=== PATIENT | female | born 1925 | race Caucasian/White ===

== ENCOUNTER 2016-06-27 13:22 | Inpatient (IN) | payer MEDICARE, BC ==
--- NOTE | 2016-06-27 14:03 | EDM.PDOC ---
{null, ED HPI GENERAL MEDICAL PROBLEM - General Chief Complaint: Gastrointestinal Problem Stated Complaint: [id number] ON LIQUID DIET LOOSE STOOL NOT FEELING Time Seen by Provider: 06/27/16 14:00 Source of Information: Reports: Patient History Limitations: Reports: No Limitations - History of Present Illness INITIAL COMMENTS - FREE TEXT/NARRATIVE: This 89 yo female patient reports to the ED with diarrhea. The patient was seen in the [facility] by Dr. Baires on 06/21/16 due to diarrhea and was started on Flagyl. The patient was advised to return to the clinic in 4-5 days if no changes in symptoms. Since Dr. Baires is not in the clinic today, the patient was brought to the ED. The patient reports no labs were done during the visit with Dr. Baires. The patient was on antibiotics prior to this episode of diarrhea. 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: Other Medication(s) (Flagyl) - Related Data Allergies Allergy/AdvReac Type Severity Reaction Status Date / Time amlodipine Allergy Cannot Verified 06/27/16 14:43 Remember ampicillin Allergy Rash Verified 06/27/16 14:43 hydralazine Allergy Other Verified 06/27/16 14:43 nisoldipine [From Sular] Allergy Cannot Verified 06/27/16 14:43 Remember Penicillins Allergy Cannot Verified 06/27/16 14:43 Remember sulfamethoxazole Allergy Cannot Verified 06/27/16 14:43 [From Bactrim] Remember trimethoprim [From Bactrim] Allergy Cannot Verified 06/27/16 14:43 Remember Home Meds: Home Meds Ascorbic Acid [Vitamin C] 500 mg PO BID 10/08/13 [History] Aspirin [Ecotrin] 81 mg PO DAILY 10/08/13 [History] Betamethasone/Propylene Glyc [Diprolene AF 0.05%] 1 applic TOP BID 10/08/13 [ History] Ca Cmb No.1/Vit D3/B-6/FA/B12 [Vitamin D3 1,000 Unit] 1 tab PO DAILY 10/08/13 [ History] Cranberry 1,000 mg PO BID 10/08/13 [History] Garlic 2 cap PO DAILY 10/08/13 [History] Labetalol [Normodyne] 200 mg PO BID 10/08/13 [History] Lisinopril 40 mg PO DAILY 10/08/13 [History] Magnesium Oxide 400 mg PO DAILY 10/08/13 [History] cloNIDine HCl [Catapres] 0.1 mg PO .DAILY SBP>185 PRN 10/08/13 [History] Vitamin E 400 units PO DAILY 12/06/13 [History] Spironolactone [Aldactone] 25 mg PO DAILY 12/08/13 [History] Bismuth Subsalicylate [Pepto Bismol] 262 mg PO QID PRN 12/16/13 [History] Spironolactone [Aldactone] 25 mg PO BID #60 tablet 12/16/13 [Rx] hydrALAZINE [Apresoline] 50 mg PO Q8HR #90 tablet 12/16/13 [Rx] Past Medical History Cardiovascular History: Reports: Hypertension Respiratory History: Reports: Pneumonia, Recurrent Hematologic History: Reports: Anemia Oncologic (Cancer) History: Reports: Breast - Past Surgical History Oncologic Surgical History: Reports: Mastectomy Social & Family History - Family History Family Medical History: Noncontributory - Tobacco Use Smoking Status *Q: Never Smoker Years of Tobacco use: 30 Used Tobacco, but Quit: Yes Month Tobacco Last Used: July Second Hand Smoke Exposure: No - Alcohol Use Days Per Week of Alcohol Use: 0 - Recreational Drug Use Recreational Drug Use: No - Living Situation & Occupation Living situation: Reports: , Alone Occupation: Retired ED ROS GENERAL - Review of Systems Review Of Systems: ROS reveals no pertinent complaints other than HPI. ED EXAM, GI/ABD - Physical Exam Exam: See Below Exam Limited By: No Limitations General Appearance: Alert, WD/WN, Moderate Distress Eyes: Bilateral: Normal Appearance, EOMI Ears: Normal External Exam, Normal Canal, Hearing Grossly Normal, Normal TMs Nose: Normal Inspection, Normal Mucosa, No Blood Throat/Mouth: Normal Inspection, Normal Lips, Normal Teeth, Normal Gums, Normal Oropharynx, Normal Voice, No Airway Compromise Head: Atraumatic, Normocephalic Neck: Normal Inspection, Supple, Non-Tender, Full Range of Motion Respiratory/Chest: No Respiratory Distress, Lungs Clear, Normal Breath Sounds, No Accessory Muscle Use, Chest Non-Tender Cardiovascular: Normal Peripheral Pulses, Regular Rate, Rhythm, No Edema, No Gallop, No JVD, No Murmur, No Rub GI/Abdominal: Normal Bowel Sounds, Soft, No Organomegaly, No Distention, No Abnormal Bruit, No Mass, Pelvis Stable, Tenderness (diffuse) (Female) Exam: Deferred Rectal (Female) Exam: Deferred Back Exam: Normal Inspection, Full Range of Motion, NT Extremities: Normal Inspection, Normal Range of Motion, Non-Tender, Normal Capillary Refill, No Pedal Edema Neurological: Alert, Oriented, CN II-XII Intact, Normal Cognition, Normal Gait, Normal Reflexes, No Motor/Sensory Deficits Psychiatric: Depressed Mood, Flat Affect Skin Exam: Warm, Dry, Intact, Normal Color, No Rash Lymphatic: No Adenopathy Course - Vital Signs Last Recorded V/S: Last Vital Signs Temp 36.2 C 06/27/16 14:13 Pulse 66 06/27/16 14:13 Resp 16 06/27/16 14:13 BP 184/67 H 06/27/16 14:13 Pulse Ox 100 06/27/16 14:13 - Orders/Labs/Meds Orders: Active Orders 24 hr Category Date Time Status C DIFFICILE TOXIN BY PCR [MREF] Stat Lab 06/27/16 13:48 Uncollected CULTURE STOOL [RM] Stat Lab 06/27/16 13:47 Uncollected UA W/MICROSCOPIC [URIN] Stat Lab 06/27/16 13:47 Uncollected Sodium Chloride 0.9% [Normal Saline] 1,000 ml Med 06/27/16 14:27 Ordered IV .BOLUS Medication Orders Sodium Chloride (Normal Saline) 1,000 mls @ 500 mls/hr IV .BOLUS ONE Stop: 06/27/16 16:26 Labs: Laboratory Tests 06/27/16 06/27/16 Range/Units 13:55 13:55 WBC 5.8 (5.0-10.0) 10^3/uL RBC 3.65 L (4.2-5.4) 10^6/uL Hgb 11.4 L (12.0-16.0) g/dL Hct 32.0 L (37.0-47.0) % MCV 87.7 (80-100) fL MCH 31.2 (27.0-34.0) pg MCHC 35.6 H (33.0-35.0) g/dL Plt Count 307 (150-450) 10^3/uL Neut % (Auto) 75.5 H (42.2-75.2) % Lymph % (Auto) 11.2 L (20.5-50.1) % [place] % (Auto) 10.9 H (2-8) % Eos % (Auto) 2.4 (1.0-3.0) % Baso % (Auto) 0.0 (0.0-1.0) % Add Manual Diff Yes Neutrophils % (Manual) 80 % Lymphocytes % (Manual) 13 % Monocytes % (Manual) 6 % Eosinophils % (Manual) 1 % Sodium 119 L (135-145) mmol/L Potassium 4.5 (3.6-5.0) mmol/L Chloride 96 L (101-111) mmol/L Carbon Dioxide 15.0 L (21.0-31.0) mmol/L Anion Gap 12.5 BUN 24 H (7-18) mg/dL Creatinine 1.1 (0.6-1.3) mg/dL Est Cr Clr Drug Dosing TNP Estimated GFR (MDRD) 47 BUN/Creatinine Ratio 21.81 Glucose 104 (74-105) mg/dL Calcium 8.6 (8.4-10.2) mg/dl Total Bilirubin 0.5 (0.2-1.0) mg/dL AST 30 (10-42) IU/L ALT 26 (10-60) IU/L Alkaline Phosphatase 25 L (42-121) IU/L Total Protein 5.7 L (6.7-8.2) g/dl Albumin 4.0 (3.2-5.5) g/dl Globulin 1.7 Albumin/Globulin Ratio 2.35 Meds: Medications Generic Name Dose Route Start Last Admin Trade Name Freq PRN Reason Stop Dose Admin Sodium Chloride 1,000 mls @ 500 mls/hr 06/27/16 14:27 Normal Saline IV 06/27/16 16:26 .BOLUS ONE Discontinued Medications Generic Name Dose Route Start Last Admin Trade Name Freq PRN Reason Stop Dose Admin Ondansetron HCl 4 mg 06/27/16 14:27 Zofran IV 06/27/16 14:28 ONETIME ONE Departure - Departure Time of Disposition: 14:44 Disposition: Admitted As Inpatient 68 Condition: fair Clinical Impression: Hyponatremia, Weakness Diarrhea Qualifiers: Diarrhea type: unspecified type Qualified Code(s): R19.7 - Diarrhea, unspecified - Discharge Information Forms: ED Department Discharge Care Plan Goals: Discussed the examination, history and lab results with Dr. Raza. Dr. Raza accepted the patient for continued evaluation and management as an inpatient at [facility]. - My Orders Last 24 Hours: My Active Orders 06/27/16 13:47 CULTURE STOOL [RM] Stat UA W/MICROSCOPIC [URIN] Stat 06/27/16 13:48 C DIFFICILE TOXIN BY PCR [MREF] Stat 06/27/16 14:27 Sodium Chloride 0.9% [Normal Saline] 1,000 ml IV .BOLUS - Assessment/Plan Last 24 Hours: My Active Orders 06/27/16 13:47 CULTURE STOOL [RM] Stat UA W/MICROSCOPIC [URIN] Stat 06/27/16 13:48 C DIFFICILE TOXIN BY PCR [MREF] Stat 06/27/16 14:27 Sodium Chloride 0.9% [Normal Saline] 1,000 ml IV .BOLUS }
[2016-06-27 14:17] LABS: CHLORIDE,CL 96 mmol/L (101-111)
[2016-06-27 14:19] LABS: SODIUM,NA 119 mmol/L (135-145)
[2016-06-27] MEDS ORDERED: Sodium Chloride 0.9% 1,000 ML IV ONE (14:27)
[2016-06-27] MEDS ORDERED: Ondansetron 4 MG/2 ML SDV IV ONE (14:27)
[2016-06-27] MEDS ORDERED: cloNIDine 0.1 MG Tab PO PRN ×2 (15:47→16:27)
[2016-06-27] MEDS ORDERED: Promethazine 25 MG/ML SDV IM PRN (15:53)
[2016-06-27] MEDS ORDERED: Acetaminophen 325 MG Tab PO PRN (15:53)
--- NOTE | 2016-06-27 16:21 | PCM.HP ---
{null, H&P History of Present Illness - General Date of Service: 06/27/16 Admit Problem/Dx: Admission Diagnosis/Problem Admission Diagnosis/Problem Diarrhea Source of Information: Patient, Family History Limitations: Reports: No Limitations - History of Present Illness Initial Comments - Free Text/Narative: 89 y/o old female with past medical history of anemia, hypertension, C. difficile, infiltrating ductal carcinoma of breast, status post right breast mastectomy, ureterovaginal prolapse presented to the emergency room with nausea , diarrhea, weakness for the last 10 days. 1 week ago, she went and saw her primary care provider who empirically treated her for C. difficile with Flagyl. She was told to be on clear liquid diet and she has been on it since. She continues to have intermittent nausea but frequent diarrhea alternating with soft stool. The amount of stool has been small. She denies blood in the stool, black stool, or mucus in the stool. She denies vomiting but today she was having dry heaves. since yesterday she has been extremely weak. she denies abdominal pain but she admits in being tender when she pushed on her stomach. She admits having asked acid reflux for over one year. she takes probiotics. she denies fever, chills, shortness breath, chest pain, dysuria, lower extremities edema, or any of the symptoms. On admission her WAC 5.8. Hemoglobin 11.4. Sodium 119. Carbon dioxide 15.0. BUN 24. Creatinine 1.1. blood pressure 196/75 - Related Data Allergies/Adverse Reactions: Allergies Allergy/AdvReac Type Severity Reaction Status Date / Time amlodipine Allergy Cannot Verified 06/27/16 14:43 Remember ampicillin Allergy Rash Verified 06/27/16 14:43 hydralazine Allergy Other Verified 06/27/16 14:43 nisoldipine [From Sular] Allergy Cannot Verified 06/27/16 14:43 Remember Penicillins Allergy Cannot Verified 06/27/16 14:43 Remember sulfamethoxazole Allergy Cannot Verified 06/27/16 14:43 [From Bactrim] Remember trimethoprim [From Bactrim] Allergy Cannot Verified 06/27/16 14:43 Remember Home Medications: Home Meds Ascorbic Acid [Vitamin C] 500 mg PO BID 10/08/13 [History] Aspirin [Ecotrin] 81 mg PO DAILY 10/08/13 [History] Ca Cmb No.1/Vit D3/B-6/FA/B12 [Vitamin D3 1,000 Unit] 1 tab PO DAILY 10/08/13 [ History] Cranberry 1,000 mg PO DAILY 10/08/13 [History] Garlic 2 cap PO DAILY 10/08/13 [History] Labetalol [Normodyne] 200 mg PO BID 10/08/13 [History] Lisinopril 20 mg PO DAILY 10/08/13 [History] Magnesium Oxide 400 mg PO DAILY 10/08/13 [History] cloNIDine HCl [Catapres] 0.1 mg PO .DAILY SBP>185 PRN 10/08/13 [History] Vitamin E 400 units PO DAILY 12/06/13 [History] Spironolactone [Aldactone] 25 mg PO DAILY 12/08/13 [History] B&C/FA/Zinc/Copper Oxide/Vit E [Stress B-Complex Tablet] 1 each PO DAILY [History] Cholecalciferol (Vitamin D3) [Vitamin D3] 1,000 units PO DAILY 06/27/16 [History ] Metronidazole [IJP: metroNIDAZOLE] 500 mg PO .EVERY 8 HOURS 06/27/16 [History] Ubidecarenone [Coenzyme Q10] 100 mg PO DAILY 06/27/16 [History] Past Medical History HEENT History: Reports: Macular Degeneration, Other (See Below) Other HEENT History: bilateral eyes Cardiovascular History: Reports: Hypertension Respiratory History: Reports: Bronchitis, Recurrent, Pneumonia, Recurrent Gastrointestinal History: Reports: GERD Genitourinary History: Reports: UTI, Recurrent, Other (See Below) Other Genitourinary History: bladder prolapse [employer] History: Reports: Musculoskeletal History: Reports: Back Pain, Chronic, Osteoarthritis Hematologic History: Reports: Anemia Oncologic (Cancer) History: Reports: Breast - Infectious Disease History Infectious Disease History: Reports: C-Difficile, Helicobacter Pylori - Past Surgical History HEENT Surgical History: Reports: Cataract Surgery, Other (See Below) Other HEENT Surgeries/Procedures: both eyes Cardiovascular Surgical History: Reports: None Respiratory Surgical History: Reports: None GI Surgical History: Reports: Cholecystectomy, Other (See Below) Other GI Surgeries/Procedures: multiple colon surgeries Female Surgical History: Reports: None Musculoskeletal Surgical History: Reports: None Oncologic Surgical History: Reports: Mastectomy, Other (See Below) Other Oncologic Surgeries/Procedures: right side Social & Family History - Family History Family Medical History: Noncontributory - Tobacco Use Smoking Status *Q: Former Smoker Years of Tobacco use: 25 Packs/Tins Daily: 0.5 Used Tobacco, but Quit: Yes Month Tobacco Last Used: April Second Hand Smoke Exposure: No - Caffeine Use Caffeine Use: Reports: Coffee - Alcohol Use Days Per Week of Alcohol Use: 0 - Recreational Drug Use Recreational Drug Use: No - Living Situation & Occupation Living situation: Reports: , Alone Occupation: Retired H&P Review of Systems - Review of Systems: Review Of Systems: See Below General: Denies: Fever, Chills, Weight Gain HEENT: Reports: No Symptoms Pulmonary: Reports: No Symptoms Cardiovascular: Reports: No Symptoms Genitourinary: Reports: Frequency (chronic). Denies: Dysuria, Burning, Pain, Hematuria Musculoskeletal: Reports: No Symptoms Skin: Reports: No Symptoms Psychiatric: Reports: No Symptoms Neurological: Reports: No Symptoms Hematologic/Lymphatic: Reports: No Symptoms Immunologic: Reports: No Symptoms Exam - Exam Exam: See Below - Vital Signs Vital Signs: Last Vital Signs Temp 36.2 C 06/27/16 15:21 Pulse 75 06/27/16 15:21 Resp 20 06/27/16 15:21 BP 196/75 H 06/27/16 15:21 Pulse Ox 98 06/27/16 15:21 Weight: 65.589 kg - Exam General: Alert, Oriented, Cooperative, Moderate Distress (due to fatigue and nausea). No: Severe Distress, Sedated, Lethargic, Obtunded HEENT: Conjunctiva Clear, EACs Clear, EOMI, Hearing Intact, Mucosa Moist & [place] , Nares Patent, Normal Nasal Septum, Posterior Pharynx Clear, Pupils Equal, Pupils Reactive, TMs Clear Neck: Supple, Trachea Midline Lungs: Clear to Auscultation, Normal Respiratory Effort Cardiovascular: Regular Rate, Regular Rhythm Abdomen: Soft, Tenderness (mild and generalized), Hyperactive Bowel Sounds. No : Organomegaly, Peritoneal Signs, Distention, Guarding, Rigidity, Rebound (Female) Exam: Deferred Rectal (Female) Exam: Deferred Back Exam: Normal Inspection, Full Range of Motion Extremities: Normal Inspection, Normal Pulses. No: Clubbing, Cyanosis, Calf Tenderness, Cool, Edema, Increased Warmth Skin: Warm, Dry, Intact Neurological: Cranial Nerves Intact, Reflexes Equal Bilateral Neuro Extensive - Mental Status: Alert, Oriented x3, Normal Mood/Affect, Normal Cognition, Memory Intact Neuro Extensive - Motor, Sensory, Reflexes: CN II-XII Intact, Normal Gait, Normal Reflexes Psychiatric: Alert, Normal Affect, Normal Mood - Patient Data Result Diagrams: 06/27/16 13:55 06/27/16 13:55 *Q Meaningful Use (ADM) - VTE *Q VTE Criteria *Q: - Stroke *Q Stroke Criteria *Q: - AMI *Q AMI Criteria *Q: - Problem List (1) Hypertensive urgency SNOMED Code(s): 606922911 ICD Code: I16.0 - HYPERTENSIVE URGENCY Status: Acute Current Visit: Yes (2) Dehydration SNOMED Code(s): 33480305 ICD Code: E86.0 - DEHYDRATION Status: Acute Current Visit: Yes (3) Diarrhea SNOMED Code(s): 48610126 ICD Code: R19.7 - DIARRHEA, UNSPECIFIED Status: Acute Current Visit: Yes Qualifiers: Diarrhea type: unspecified type Qualified Code(s): R19.7 - Diarrhea, unspecified (4) Hyponatremia SNOMED Code(s): 70738054 ICD Code: E87.1 - HYPO-OSMOLALITY AND HYPONATREMIA Status: Acute Current Visit: Yes (5) Anemia SNOMED Code(s): 445826355 ICD Code: D64.9 - ANEMIA, UNSPECIFIED Status: Chronic Current Visit: No Onset Date: 12/05/13 Problem List Initiated/Reviewed/Updated: Yes Orders Last 24hrs: Active Orders 24 hr Category Date Time Status Patient Status [ADT] Routine ADT 06/27/16 16:10 Active Antiembolic Devices [RC] PER UNIT ROUTINE Care 06/27/16 15:53 Active PT Evaluation and Treatment [CONS] Routine Cons 06/27/16 15:53 Active BASIC METABOLIC PANEL,BMP [CHEM] AM Lab 06/28/16 05:11 Ordered CBC WITH AUTO DIFF [HEME] AM Lab 06/28/16 05:11 Ordered MAGNESIUM [CHEM] AM Lab 06/28/16 05:11 Ordered PHOSPHORUS [CHEM] AM Lab 06/28/16 05:11 Ordered Acetaminophen [Tylenol] Med 06/27/16 15:53 Active 650 mg PO Q4H PRN Ondansetron [Zofran ODT] Med 06/27/16 15:53 Active 4 mg PO Q6H PRN Promethazine [Phenergan] Med 06/27/16 15:53 Active 6.25 mg IM Q6H PRN Code Status [Resuscitation Status] Routine Resus Stat 06/27/16 16:10 Ordered Medication Orders Acetaminophen (Tylenol) 650 mg PO Q4H PRN PRN Reason: Pain (Mild 1-3)/fever Ascorbic Acid (Vitamin C) 500 mg PO BID [facility] Aspirin (Halfprin) 81 mg PO DAILY [facility] Clonidine HCl (Catapres) 0.1 mg PO DAILY PRN PRN Reason: Hypertension Heparin Sodium (Porcine) (Heparin Sodium) 5,000 units SUBCUT BID [facility] Sodium Chloride (Normal Saline) 1,000 mls @ 500 mls/hr IV .BOLUS ONE Stop: 06/27/16 16:26 Last Admin: 06/27/16 14:52 Dose: 500 mls/hr Sodium Chloride (Normal Saline) 1,000 mls @ 125 mls/hr IV ASDIRECTED [facility] Stop: 06/28/16 08:00 Labetalol HCl (Normodyne) 200 mg PO BID [facility] Lisinopril (Prinivil) 20 mg PO DAILY [facility] Ondansetron HCl (Zofran Odt) 4 mg PO Q6H PRN PRN Reason: nausea, able to take PO Promethazine HCl (Phenergan) 6.25 mg IM Q6H PRN PRN Reason: Nausea/Vomiting Spironolactone (Aldactone) 25 mg PO DAILY [facility] Assessment/Plan Comment:: Hypertensive urgency with her and her dose of clonidine now and if blood pressure still high will give her labetalol dose earlier Check troponin diarrhea 1 L of normal saline as a bolus then normal saline infusion at 125 cc per hour until the morning then readdress we'll try soft diet Nausea without vomiting Antiemetic as needed GERD Protonix IV Dehydration IV fluids bolus and infusion Generalized weakness IV fluid infusion Physical therapy Chronic anemia Hemoglobin is acceptable she was to be DNR/DNI Heparin for DVT prophylaxis plan of care was discussed with patient and 2 daughters and they verbalized understanding and agreed with it }
[2016-06-27] MEDS: Sodium Chloride 0.9% 1,000 ML IV SCH (17:01)
[2016-06-27] MEDS: Ondansetron 4 MG/2 ML SDV IV SCH (17:18)
[2016-06-27] MEDS: Pantoprazole 40 MG Vial IVPUSH SCH (17:18)
[2016-06-27] MEDS: Heparin Sodium 5,000 Units/ML Vial SUBCUT SCH (21:00)
[2016-06-27] MEDS: Ascorbic Acid 500 MG Tab PO SCH (21:00)
[2016-06-27] MEDS: Labetalol 100 MG Tab PO SCH (21:01)
[2016-06-28] MEDS: Sodium Chloride 0.9% 1,000 ML IV SCH (01:09)
[2016-06-28] MEDS: Ondansetron 4 MG/2 ML SDV IV SCH ×3 (01:51→11:33)
[2016-06-28] MEDS ORDERED: Lisinopril 20 MG Tab PO SCH (09:00)
[2016-06-28] MEDS ORDERED: Spironolactone 25 MG Tab PO SCH (09:00)
[2016-06-28] MEDS: Ascorbic Acid 500 MG Tab PO SCH ×2 (10:37→20:36)
[2016-06-28] MEDS: Aspirin 81 MG Tab.EC PO SCH (10:37)
[2016-06-28] MEDS: Heparin Sodium 5,000 Units/ML Vial SUBCUT SCH ×2 (10:38→20:37)
[2016-06-28] MEDS: Pantoprazole 40 MG Vial IVPUSH SCH (11:33)
[2016-06-28] MEDS: Labetalol 100 MG Tab PO SCH ×3 (11:37→20:36)
[2016-06-28] MEDS ORDERED: Ciprofloxacin in D5W 400 MG in Premix Bag 1 BAG IV SCH ×2 (12:00)
[2016-06-28] MEDS ORDERED: Sodium Chloride 0.9% 1,000 ML IV SCH (12:15)
--- NOTE | 2016-06-28 13:05 | PN ---
{null, DATE: 06/28/2016 SUBJECTIVE: The patient is an 89-year-old female with medical history significant for hypertension; hyperlipidemia; C. difficile colitis in the past; infiltrating ductal carcinoma of breast, status post right breast mastectomy, presented with complaints of nausea, diarrhea, and has been dealing with diarrhea for the last 10 days. She was empirically started on antibiotic with Flagyl as an outpatient by primary care, but the patient was admitted to the hospital with increasing weakness, tiredness, and continued diarrhea. For the past 24-hours, the patient continues to have some mild weakness, aggravated on exertion, relieved with rest. Denies any chest pain. No shortness of breath. No abdominal pain. She denies any further complaints of having loose stools. She denies any abdominal pain at this time. REVIEW OF SYSTEMS: Cardiovascular, respiratory, gastrointestinal, neurologic, constitutional were all evaluated. PHYSICAL EXAMINATION: Vital Signs: Temperature of 97.9, pulse of 62, blood pressure 154/66, saturating at 100% on room air, respiratory rate of 20. General Appearance: The patient is well oriented to time, place, and person. Follows commands spontaneously. Cardiovascular System: S1, S2 heard with normal intensity. No gallops. Respiratory: Clear to auscultation bilaterally. No wheeze. No crepitations. Abdomen: Soft. Bowel sounds positive. Nontender. No rigidity. Extremities: No edema. Bilateral lower extremities. Neurology: No gross focal neurological deficits. LABORATORY DATA: WBC 4.9, hemoglobin 10, hematocrit 29.2, platelet count 250. Sodium 130, potassium 4.1, chloride 110, bicarb 16, anion gap of 8.1, BUN 18, creatinine 0.9, glucose 83, calcium 8, phosphorus 2.6, magnesium 1.6. Urinalysis, moderate occult blood, leukocyte esterase large, rbc's 5 to 10, wbc's greater than 100, many bacteria. MEDICATIONS: 1. Tylenol 650 mg every 4 hours as needed for pain. 2. Vitamin C 500 mg twice a day. 3. Aspirin 81 mg daily. 4. Ciprofloxacin 400 mg IV q.12. 5. Heparin 5000 subcu q.12 hourly. 6. Labetalol 200 mg twice a day. 7. Lisinopril 20 mg daily. 8. Zofran 4 mg IV 6 hours as needed for nausea and vomiting. 9. Protonix 40 mg daily. 10.Clonidine 0.1 mg three times a day as needed for systolic blood pressure greater than 160. ASSESSMENT: 1. Acute urinary tract infection with cystitis. 2. Diarrhea. 3. Nausea. 4. Generalized debility. 5. Hypertension. 6. Hyperlipidemia. PLAN: 1. Urinary tract infection. The patient presented with increasing weakness and diarrhea, noted to have urinary tract infection with possible cystitis leading to lower abdominal discomfort. We will start her on IV ciprofloxacin, also have her on Pyridium to better control the pain, possible cystitis. We will follow the urine cultures and titrate the antibiotics once we have the culture reports available. 2. Hypertension, uncontrolled. The patient noted to have elevated blood pressure. She is currently on labetalol 200 mg twice a day. She is noted to have lower heart rates, we will not increase the labetalol. Continue with lisinopril. Add clonidine as needed for systolic blood pressure greater than 160. She was noted to have uncontrolled hypertension at the time of admission. 3. Diarrhea, this seems to be resolving. We will follow stool for C. diff toxin. So far, she says that she has not moved her bowels yet, so we will closely follow. 4. Hyponatremia. The patient was noted to have hyponatremia at the time of admission, which is improved with IV normal saline. Continue the same. 5. Hypomagnesium. She is noted to have low magnesium. We will replace with IV magnesium and recheck magnesium and a phosphorus level in a.m. 6. Deep venous thrombosis prophylaxis. Continue with heparin for deep venous thrombosis prophylaxis. 7. Discussed with Dr. Raza regarding the plan of care. [facility] /[id number] }
[2016-06-28] MEDS ORDERED: Labetalol 100 MG Tab PO SCH (14:00)
[2016-06-28] MEDS: Levofloxacin 500 MG Tab PO SCH (14:36)
[2016-06-28] MEDS: Phenazopyridine 95 MG Tab PO SCH (20:36)
[2016-06-29] MEDS: Pantoprazole 40 MG Tab.CR PO SCH (06:05)
--- NOTE | 2016-06-29 13:05 | PN ---
{null, DATE: 06/29/2016 SUBJECTIVE: Ms. 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 For the past 24 hours, the patient denies any complaints of chest pain. No shortness of breath. No abdominal pain. No nausea. No vomiting. No diarrhea. The patient's diarrhea has improved. She was started on oral Levaquin for her urinary tract infection. Has IV line went bad. The patient has right-sided mastectomy, so could not use any IV line on the right upper extremity. REVIEW OF SYSTEMS: Cardiovascular, respiratory, gastrointestinal, neurology, constitutional were all evaluated. PHYSICAL EXAMINATION: Vital Signs: Temperature of 98, pulse of 62, blood pressure 151/51, respiratory rate of 20, saturating at 98% on room air. General Appearance: The patient is well oriented to time, place, and person. Follows commands spontaneously. Cardiovascular System: S1, S2 heard with normal intensity. No gallops. Respiratory: Clear to auscultation bilaterally. No wheeze. No crepitations. Abdomen: Soft. Bowel sounds positive. Nontender. No rigidity. Extremities: No edema in bilateral lower extremities. Neurology: No gross focal neurological deficits. Skin: No acute rash noted on the skin. MEDICATIONS: 1. Tylenol 650 mg every 4 hours as needed for pain. 2. Norvasc 5 mg daily. 3. Aspirin 81 mg daily. 4. Heparin 5000 subcu every 12 hourly. 5. Labetalol 200 mg twice a day. 6. Levofloxacin 500 mg daily. 7. Lisinopril 20 mg daily. 8. Magnesium oxide 250 mg twice a day. 9. Protonix 40 mg daily. LABORATORY DATA: Reviewed showed sodium 130, potassium 4.4, chloride 110, bicarb 16, BUN 18, creatinine 1, glucose 94, and magnesium 1.5. ASSESSMENT: 1. Urinary tract infection. 2. Diarrhea. 3. Nausea. 4. Generalized debility. 5. Hypertension. 6. Hyperlipidemia. 7. Hypomagnesemia. 8. Hyponatremia. PLAN: 1. Urinary tract infection. The patient's urinalysis suggestive of UTI. Awaiting for urine culture. The patient was started on oral Levaquin. We will continue the same. She remains afebrile for now. 2. Hypertension seems to be improving. Continue current antihypertensive medications. Further dose adjust the medication to optimize the blood pressure as needed. Continue with clonidine as needed for blood pressure. 3. Hypomagnesemia and hyponatremia. This is mainly from her diarrhea, which has resolved at this time. We will replace with oral magnesium and recheck a basic metabolic panel, and magnesium level in a.m. 4. Diarrhea. The patient was noted to have possible C. diff, but her C. diff is negative on this admission. Her diarrhea is also resolved at this time. We will be closely following the patient. 5. Deep venous thrombosis prophylaxis. Continue with heparin for DVT prophylaxis. 6. Generalized debility. The patient's weakness seems to be improving. This is mainly from dehydration and diarrhea, which seems to be resolved. Continue with physical therapy and occupational therapy while in the hospital. [facility] /[id number] }
[2016-06-29] MEDS: Phenazopyridine 95 MG Tab PO SCH ×2 (13:44→21:00)
[2016-06-29] MEDS: Aspirin 81 MG Tab.EC PO SCH (13:47)
[2016-06-29] MEDS: amLODIPine 5 MG Tab PO SCH (13:48)
[2016-06-29] MEDS: Ascorbic Acid 500 MG Tab PO SCH ×2 (13:49→20:59)
[2016-06-29] MEDS: Lisinopril 20 MG Tab PO SCH ×2 (13:49→17:13)
[2016-06-29] MEDS: Labetalol 100 MG Tab PO SCH ×3 (13:50→20:59)
[2016-06-29] MEDS: Heparin Sodium 5,000 Units/ML Vial SUBCUT SCH ×2 (13:51→21:06)
[2016-06-29] MEDS: Levofloxacin 500 MG Tab PO SCH (14:12)
[2016-06-30] MEDS: Ondansetron 4 MG Tab.DIS PO PRN ×2 (02:59→13:21)
[2016-06-30] MEDS: Pantoprazole 40 MG Tab.CR PO SCH (06:04)
[2016-06-30] MEDS: Aspirin 81 MG Tab.EC PO SCH (09:38)
[2016-06-30] MEDS: Labetalol 100 MG Tab PO SCH ×2 (09:38→21:01)
[2016-06-30] MEDS: amLODIPine 5 MG Tab PO SCH (09:39)
[2016-06-30] MEDS: Phenazopyridine 95 MG Tab PO SCH ×2 (09:39→21:01)
[2016-06-30] MEDS: Ascorbic Acid 500 MG Tab PO SCH ×2 (09:40→21:01)
[2016-06-30] MEDS: Heparin Sodium 5,000 Units/ML Vial SUBCUT SCH ×2 (09:56→21:09)
--- NOTE | 2016-06-30 12:29 | PN ---
{null, DATE: 06/30/2016 SUBJECTIVE: Ms. 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 For the past 24 hours, the patient felt nauseated this morning. Did not feel like eating. Required Zofran. She had some mild loose stools again and complains of mild abdominal discomfort mostly in the lower abdomen, 2-3/10 in intensity, no clear aggravating factors, relieved with rest, associated with nausea, denies any chest pain. No shortness of breath. REVIEW OF SYSTEMS: Cardiovascular, respiratory, gastrointestinal, neurology, and constitutional were all evaluated. PHYSICAL EXAMINATION: Vital Signs: Temperature of 97.4, pulse of 75, blood pressure 149/63, respiratory rate of 20, and saturating at 98% on room air. General Appearance: The patient is well oriented to time, place, and person. Follows commands spontaneously. Cardiovascular System: S1 and S2 heard with normal intensity. No gallops. Respiratory: Clear to auscultation bilaterally. No wheeze. No crepitations. Abdomen: Soft. Bowel sounds positive. Mild tender. No rigidity. No guarding. No rebound tenderness. Extremities: No edema in bilateral lower extremities. Neurology: No gross focal neurological deficits. Skin: No acute rash noted. MEDICATIONS: 1. Tylenol 650 mg every 4 hours as needed for pain. 2. Norvasc 5 mg daily. 3. Vitamin C 500 mg twice a day. 4. Aspirin 81 mg daily. 5. Clonidine 0.1 mg three times a day as needed for hypertension. 6. Heparin 5000 subcu q.12 hourly. 7. Labetalol 200 mg twice a day. 8. Levaquin 500 mg daily. 9. Lisinopril 20 mg daily. 10.Magnesium oxide 500 mg twice a day. 11.Zofran 4 mg every 6 hours as needed for nausea. 12.Protonix 40 mg daily. 13.Pyridium 190 mg twice a day. LABORATORY DATA: Reviewed shows no new labs ordered for today. ASSESSMENT: 1. Urinary tract infection. 2. Diarrhea. 3. Acute hyponatremia. 4. Acute hypomagnesemia. 5. Generalized debility. 6. Hypertension. 7. Hyperlipidemia. PLAN: 1. Urinary tract infection. The patient was noted to have UTI on this admission. She is currently on oral Levaquin. Culture showed no growth and possible contaminant. We will continue with oral Levaquin for now. 2. Diarrhea. The patient continues to have mild episodes of loose stools. We did check her stool for culture and C. diff toxin, which were all negative. We will repeat the C. 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 3. Hypertension. The patient's blood pressure seems to be in acceptable range. Continue the labetalol and lisinopril. Continue with clonidine as needed for systolic blood pressure greater than 160. 4. Acute hypomagnesemia. We will recheck a BMP and magnesium in a.m. Continue with magnesium oxide supplement. 5. Hyponatremia, much improved. The patient was on IV fluids, but unfortunately we had the IV line malfunction and she has a right-sided breast mastectomy in the past. We will closely follow. We will recheck a BMP in a.m. 6. Deep vein thrombosis prophylaxis. Continue with heparin for DVT prophylaxis. 7. Nausea. The patient continues to have nausea, but this could be resulting from antibiotics to. So, we will have her on antiemetic protocol. Continue with Zofran as needed. 8. Generalized debility. The patient is encouraged to ambulate around. We will have Physical Therapy and Occupational Therapy evaluate and treat the patient. [facility] /[id number] }
[2016-06-30] MEDS: Lisinopril 20 MG Tab PO SCH (12:56)
[2016-06-30] MEDS: Levofloxacin 500 MG Tab PO SCH (13:13)
[2016-07-01] MEDS: Pantoprazole 40 MG Tab.CR PO SCH (05:29)
[2016-07-01] MEDS: Aspirin 81 MG Tab.EC PO SCH (08:09)
[2016-07-01] MEDS: Heparin Sodium 5,000 Units/ML Vial SUBCUT SCH ×2 (08:09→20:46)
[2016-07-01] MEDS: Labetalol 100 MG Tab PO SCH ×2 (08:10→20:50)
[2016-07-01] MEDS: amLODIPine 5 MG Tab PO SCH (08:11)
[2016-07-01] MEDS: Phenazopyridine 95 MG Tab PO SCH (08:11)
[2016-07-01] MEDS: Ascorbic Acid 500 MG Tab PO SCH ×2 (08:12→20:49)
[2016-07-01] MEDS ORDERED: Barium Sulfate w/v 2.1% Oral Susp 450 ML Bottle PO ONE (11:00)
[2016-07-01] MEDS: Lisinopril 20 MG Tab PO SCH (11:17)
[2016-07-01] MEDS: metroNIDAZOLE 250 MG Tab PO SCH ×2 (11:17→17:30)
--- NOTE | 2016-07-01 11:34 | PN ---
{null, DATE: 07/01/2016 SUBJECTIVE: Ms. 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 For the past 24 hours, the patient continues to have loose stools. She had at least 7 episodes of loose stools since yesterday, which are watery in nature. No blood seen in the stool. No nausea. No vomiting. Continues to have abdominal pain mostly in the lower abdomen and diffuse in nature. 4-5/10 in intensity, no clear aggravating factors or relieving factors. Not associated with nausea, but feels as if the abdomen is bloated. Denies any chest pain or shortness of breath. REVIEW OF SYSTEMS: Cardiovascular, respiratory, gastrointestinal, neurology, and constitutional were all evaluated. PHYSICAL EXAMINATION: Vital Signs: Temperature of 98.2, pulse of 71, blood pressure of 124/55, saturating at 98% on room air, and respiratory rate of 20. General Appearance: The patient is well oriented to time, place, and person. Follows commands spontaneously. Cardiovascular System: S1, S2 heard with normal intensity. No gallops. Respiratory: Clear to auscultation bilaterally. No wheeze. No crepitations. Abdomen: Bowel sounds positive. Tympanic to percussion. Mild tenderness. No rigidity. no guarding. No rebound tenderness. Extremities: No edema in bilateral lower extremities. Neurology: No gross focal neurological deficits. Skin: No acute rash noted. MEDICATIONS REVIEWED: Tylenol 650 mg every 4 hours as needed for pain, Norvasc 5 mg daily, vitamin C 500 mg twice a day, aspirin 81 mg daily, heparin 5000 subcu q.12 hourly, labetalol 200 mg twice a day, Levaquin 500 mg daily, lisinopril 20 mg daily, magnesium oxide 500 mg three times a day, metronidazole 500 mg three times a day, and Protonix 40 mg daily. LABORATORY DATA: Reviewed sodium 130, potassium 4.7, chloride 106, bicarb 18, BUN 21, creatinine 1.2, and glucose 104, and magnesium 1.5. ASSESSMENT: 1. Urinary tract infection. 2. Diarrhea. 3. Dehydration. 4. Hypomagnesemia. 5. Hyponatremia. 6. Generalized debility. 7. Hypertension. 8. Hyperlipidemia. PLAN: 1. Urinary tract infection. The patient was noted to have UTI at the time of admission, is currently on Levaquin. Her urine culture did not show any growth. It was a contaminated sample. We will continue with Levaquin for now. She remains afebrile. 2. Diarrhea. The patient continues to have diarrhea, unsure if this is resulting from her antibiotic use mainly the Levaquin. If she has recurrent C. difficile colitis, the patient is complaining of abdominal pain, which is diffuse in nature, goes along with C. difficile colitis. We will get a CT scan of the abdomen and pelvis for further evaluation. If she has colitis then one might consider switching antibiotic to oral vancomycin for better treatment of her C. diff. We will repeat the C. diff toxin. 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 We will closely follow. 3. Hypertension. The patient's blood pressure seems to be in acceptable range. Continue current antihypertensive medication. Avoid any hypotensive episodes. 4. Acute hyponatremia. This is mainly from hypovolemic hyponatremia from diarrhea. We will replace with IV normal saline. Recheck a basic metabolic panel in the a.m. 5. Hypomagnesemia. The patient is currently on magnesium oxide twice a day. We will increase it to 3 times a day and check a magnesium level in a.m. 6. Generalized debility. This is mainly from dehydration from diarrhea. Keep her hydrated with IV fluids. Have Physical Therapy and Occupational Therapy evaluate and treat the patient. 7. Deep vein thrombosis prophylaxis. Continue with heparin for DVT prophylaxis. [facility] /[id number] }
[2016-07-01] MEDS: Sodium Chloride 0.9% 10 ML Syringe FLUSH PRN (13:34)
[2016-07-01] MEDS: Sodium Chloride 0.9% 1,000 ML IV SCH (13:35)
[2016-07-01] MEDS: Levofloxacin 500 MG Tab PO SCH (13:55)
[2016-07-01] MEDS ORDERED: Loperamide 2 MG Cap PO ONE (14:06)
[2016-07-01] MEDS: Loperamide 2 MG Cap PO PRN (18:41)
[2016-07-02] MEDS: Loperamide 2 MG Cap PO PRN (02:20)
[2016-07-02] MEDS: metroNIDAZOLE 250 MG Tab PO SCH ×3 (02:20→17:47)
[2016-07-02] MEDS: Sodium Chloride 0.9% 1,000 ML IV SCH (03:10)
[2016-07-02] MEDS: Pantoprazole 40 MG Tab.CR PO SCH (06:06)
[2016-07-02] MEDS: amLODIPine 5 MG Tab PO SCH (09:53)
[2016-07-02] MEDS: Labetalol 100 MG Tab PO SCH ×2 (09:54→21:23)
[2016-07-02] MEDS: Ascorbic Acid 500 MG Tab PO SCH ×2 (09:54→21:24)
[2016-07-02] MEDS: Aspirin 81 MG Tab.EC PO SCH (09:55)
[2016-07-02] MEDS: Heparin Sodium 5,000 Units/ML Vial SUBCUT SCH ×2 (09:55→21:28)
[2016-07-02] MEDS ORDERED: Simethicone 80 MG Tab.Chew PO PRN (10:05)
[2016-07-02] MEDS ORDERED: Magnesium Sulfate/Water 2 GM in Premix Bag 1 BAG IV ONE (10:06)
--- NOTE | 2016-07-02 11:44 | PN ---
{null, DATE: 07/02/2016 SUBJECTIVE: Mrs. 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 Noted to have urinary tract infection. For the last 24 hours, the patient was noted to have profuse diarrhea and we started her on Imodium. We also got a CT scan of the abdomen and pelvis, as she was complaining of increasing abdominal pain. The CT abdomen pelvis was benign except for chronic changes. This morning, she appears to be more stable, she had a good night's sleep. She responded well to the Imodium treatment. She denies any chest pain. No shortness of breath. No abdominal pain. No nausea. No vomiting. She had 1 bowel movement this morning. REVIEW OF SYSTEMS: Cardiovascular, respiratory, gastrointestinal, neurology, constitutional were all evaluated. PHYSICAL EXAMINATION: Vital signs: Temperature of 97.7, pulse of 73, blood pressure 132/52, saturating at 99% on room air, and respiratory rate of 20. General Appearance: Patient is well oriented to time, place, and person. Follows commands spontaneously. Cardiovascular System: S1, S2 heard with normal intensity. No gallops. Respiratory System: Clear to auscultation bilaterally. No wheeze. No crepitations. Abdomen: Soft. Bowel sounds positive. Nontender. No rigidity. No guarding. No rebound tenderness. Extremities: No edema in bilateral lower extremities. Neurology: No gross focal neurological deficits. MEDICATIONS: Reviewed. 1. Continue with Tylenol 650 every 4 hours as needed for pain. 2. Vitamin C 500 mg twice a day. 3. Clonidine 0.1 mg 3 times a day as needed for blood pressure greater than 160. 4. Labetalol 200 mg twice a day. 5. Levaquin 500 mg daily. 6. Lisinopril 20 mg daily. 7. Imodium 2 mg every 4 hours as needed for diarrhea. 8. Magnesium oxide 500 mg 3 times a day. 9. Metronidazole 500 mg 3 times a day. 10.Protonix 40 mg once daily. 11.Simethicone 80 mg every 6 hours as needed for abdominal pain and bloating. ASSESSMENT: 1. Diarrhea. 2. Urinary tract infection. 3. Hypomagnesemia. 4. Dehydration. 5. Hypertension. 6. Hyperlipidemia. 7. Generalized weakness. PLAN: 1. Urinary tract infection. The patient was admitted with increasing weakness, tiredness, and was noted to have UTI. Urine culture was showing contaminants. She is currently on oral Levaquin, we will continue the same. She remains afebrile. 2. Diarrhea. The patient had history of C. diff colitis in the past. We did check her stool for C. diff on this admission, which was negative but secondary to the continued diarrhea, we will repeat the C. diff toxin assay today. The patient was given some Imodium after which her symptoms seems to be improving. 3. Dehydration. This is mainly from loose stools and diarrhea. We will have her on IV normal saline at 75 mL/h. She appears to be more stable today. 4. Hypertension. The patient's blood pressure seems to be in acceptable range. Continue with current antihypertensive medications. She is also noted to be on clonidine as needed for systolic blood pressure greater than 160. 5. Hypomagnesemia. The patient continues to have low magnesium, this is mainly from continued diarrhea, we will give her 2 g of magnesium sulfate. We will recheck a magnesium in a.m. Continue with the oral magnesium and titrate the medication. 6. Generalized debility. This is mainly from dehydration and increased weakness, which seems to be slightly improved today after giving her IV fluids. 7. Deep venous thrombosis prophylaxis. Continue with heparin for DVT prophylaxis. 8. The patient is staying longer than expected secondary to her ongoing diarrhea, ongoing hypomagnesemia, and dehydration requiring IV fluids, so delay in discharge process. [facility] /[id number] }
[2016-07-02] MEDS: Lisinopril 20 MG Tab PO SCH (12:44)
[2016-07-02] MEDS: Levofloxacin 500 MG Tab PO SCH (14:11)
[2016-07-02] MEDS: Sodium Chloride 0.9% 10 ML Syringe FLUSH PRN (22:26)
[2016-07-03] MEDS: metroNIDAZOLE 250 MG Tab PO SCH ×2 (02:06→10:44)
[2016-07-03] MEDS: Pantoprazole 40 MG Tab.CR PO SCH (05:34)
[2016-07-03 07:47] VITALS: BP 140/59
[2016-07-03] MEDS: Ascorbic Acid 500 MG Tab PO SCH (09:47)
[2016-07-03] MEDS: Aspirin 81 MG Tab.EC PO SCH (09:47)
[2016-07-03] MEDS: Labetalol 100 MG Tab PO SCH (09:47)
[2016-07-03] MEDS: Heparin Sodium 5,000 Units/ML Vial SUBCUT SCH (09:50)
[2016-07-03] MEDS: amLODIPine 5 MG Tab PO SCH (09:50)
--- NOTE | 2016-07-03 16:05 | DISCH ---
{null, ADMITTING DIAGNOSES: 1. Hypertensive urgency. 2. Diarrhea. 3. Dehydration. 4. Nausea. 5. Generalized weakness. DISCHARGE DIAGNOSIS: 1. Urinary tract infection, resolved with oral antibiotics. 2. Diarrhea leading to severe dehydration, requiring IV fluids. 3. Acute hypomagnesemia, requiring IV and oral magnesium replacement. 4. Acute hyponatremia, resolved with IV normal saline. 5. Generalized weakness and debility, requiring continued physical therapy and occupational therapy. HISTORY OF PRESENT ILLNESS: Ms. Onofre Durán is an 89-year-old female with a medical history significant for hypertension, hyperlipidemia, history of Clostridium difficile colitis in the past, was admitted to the hospital with complaints of increasing weakness, tiredness, and continued diarrhea. The patient had tried oral Flagyl as an outpatient, but failed treatment. She was noted to have urinary tract infection on this admission needing IV Levaquin and then changed to oral Levaquin on this admission. Her urine culture remained negative showing some contaminant in the urine culture. Her stool for C. diff was tested twice on this admission, which came back negative both the times. She was started back on the oral Flagyl. She was given Imodium for her diarrhea which seems to be resolving her diarrhea. She was noted to be severely dehydrated requiring IV fluids. She was also noted to have acute hyponatremia which seems to be improved at the time of discharge, and acute hypomagnesemia is from her severe dehydration. She required oral and IV magnesium replacement. She continued to feel weak and tired, and she continued to receive physical therapy, so she is being discharged from acute care and be admitted to swing bed for continued physical therapy and occupational therapy prior to going home. She remained hemodynamically stable on this admission. PHYSICAL EXAMINATION: On the day of discharge: Vital Signs: Temperature of 98.6, pulse of 56, blood pressure of 140/59, respiratory rate of 20, saturating at 99% on room air. General Appearance: The patient is well oriented to time, place, and person. Follows commands spontaneously. Cardiovascular System: S1 and S2 heard with normal intensity. No gallops. Respiratory: Clear to auscultation bilaterally. No wheeze. No crepitations. Abdomen: Soft. Bowel sounds positive. Nontender. No rigidity. Extremities: No edema in bilateral lower extremities. Neurology: No gross focal neurological deficits. DISCHARGE MEDICATIONS: Include: 1. Tylenol 650 mg every 4 hours as needed for pain. 2. Norvasc 5 mg daily. 3. Vitamin C 500 mg twice a day. 4. Aspirin 81 mg daily. 5. Labetalol 200 mg twice a day. 6. Lisinopril 20 mg daily. 7. Imodium 2 mg every 4 hours as needed for diarrhea. 8. Magnesium oxide 500 mg daily. 9. Flagyl 500 mg q.8 hourly. 10.Zofran 4 mg oral every 6 hours as needed for nausea. 11.Protonix 40 mg daily. 12.Simethicone 80 mg every 6 hours as needed for flatulence. CONDITION ON ADMISSION: Poor. CONDITION ON DISCHARGE: Stable. Discharged to swing bed for continued physical therapy and occupational therapy. FOLLOWUP: Primary care physician after getting discharged from the swing bed. ACTIVITY: As tolerated. DIET: Cardiac healthy diet. I spent over 35 minutes of time in evaluating and treating this patient and making the discharge plan. [facility] /[id number] }
== END 2016-07-03 10:00 | disposition swing bed (61) | DRG 392 ==
LOC: DL.ED 13:22 → DL.MS 15:19 → UNDOADMIN 15:19 → DL.MS 15:50 → INTOOBSV 15:50 → OBSVTOIN 16:10 → DL.MS 07-03 10:04
PROVIDERS: ADMIT Family Medicine; ATTEND Family Medicine
DX: R19.7 Diarrhea, unspecified (principal); N39.0 Urinary tract infection, site not specified; E87.1 Hypo-osmolality and hyponatremia; E86.0 Dehydration; E83.42 Hypomagnesemia; I10 Essential (primary) hypertension; R53.1 Weakness; E78.5 Hyperlipidemia, unspecified; D64.9 Anemia, unspecified; Z85.3 Personal history of malignant neoplasm of breast; Z90.11 Acquired absence of right breast and nipple; K21.9 Gastro-esophageal reflux disease without esophagitis; M19.90 Unspecified osteoarthritis, unspecified site; Z66 Do not resuscitate
CPT/HCPCS: 36415; 80053; 81001; 84484; 85025; 87046 ×2; 96374; 99284; 99285; J2405; J7030; 74176; 80048; 83735; 84100; 87045; 87086; 87493; 87899; 97116-GP; 97161-GP; 97165-GO; A9270-GY; C9113; J0744; J1644; J3475; J7050

== ENCOUNTER 2016-07-03 10:12 | Inpatient (IN) | payer MEDICARE, BC ==
[2016-07-03] MEDS ORDERED: cloNIDine 0.1 MG Tab PO PRN (10:48)
[2016-07-03] MEDS ORDERED: Sodium Chloride 0.9% 10 ML Syringe FLUSH PRN (10:48)
[2016-07-03] MEDS ORDERED: Promethazine 25 MG/ML SDV IM PRN (10:48)
[2016-07-03] MEDS ORDERED: Acetaminophen 325 MG Tab PO PRN (10:48)
[2016-07-03] MEDS ORDERED: Loperamide 2 MG Cap PO PRN (10:48)
[2016-07-03] MEDS ORDERED: Simethicone 80 MG Tab.Chew PO PRN (10:48)
[2016-07-03] MEDS ORDERED: Ondansetron 4 MG Tab.DIS PO PRN (10:48)
[2016-07-03] MEDS: Lisinopril 20 MG Tab PO SCH (12:22)
--- NOTE | 2016-07-03 14:35 | HP ---
CHIEF COMPLAINT: Generalized debility requiring more physical therapy and occupational therapy. HISTORY OF PRESENTING ILLNESS: Ms. Onofre Elaine is an 89-year-old female, who was admitted to the acute care setting one week back that is on the 18th was admitted for urinary tract infection and was noted to have severe dehydration requiring IV fluids and also noted to have hypomagnesemia and hyponatremia. The patient continued to have diarrhea. Stool for C. diff toxin was negative x2, but she continued to have generalized debility with increasing weakness and tiredness requiring more physical therapy and occupational therapy prior to getting discharged to home, so the patient is being admitted to the swing bed. At this time, the patient denies any complaints of chest pain. No shortness of breath. No abdominal pain. No nausea. No vomiting. No diarrhea. Continues to complain of having weakness 4-5/10 in intensity, aggravated on exertion, relieved with rest, not associated with any nausea or vomiting. Denies any diarrhea. Today, complains of mild abdominal discomfort. The patient denied any history of chest pains on exertion. No history of dyspnea on exertion. No history of orthopnea or paroxysmal nocturnal dyspnea. The patient denied any history of hematemesis, hematochezia, or melanotic stools. Normal bowel and bladder habits otherwise, but lately she has been experiencing a lot of loose stools. REVIEW OF SYSTEMS: A complete review of system including skin, ear, nose, and throat, cardiovascular system, respiratory system, gastrointestinal system, genitourinary system, hematology, oncology, neurology, allergy, immunology, endocrinology, constitutional were all evaluated and were negative except for the above-said notes. PAST MEDICAL HISTORY: Significant for hypertension, hyperlipidemia, history of chronic anemia, and infiltrating ductal carcinoma of the breast. PAST SURGICAL HISTORY: Significant for tonsillectomy and mastectomy on the right side, colon surgery, and cholecystectomy. FAMILY HISTORY: Significant for hypertension, and cerebrovascular accident in her mother, hypertension in her sister and lung cancer in her brother. SOCIAL HISTORY: The patient denied any history of smoking tobacco. No history of alcohol intake. The patient had history of smoking in the past but quit smoking in 1979. ALLERGIC HISTORY: The patient noted to have allergies to ampicillin, hydralazine, penicillin, Bactrim, sulfa, and amlodipine. She has intolerance to Norvasc with swelling of the legs. HOME MEDICATIONS: 1. Tylenol 650 every 4 hours as needed for pain. 2. Norvasc 5 mg daily. 3. Ascorbic acid 500 mg twice a day. 4. Aspirin 81 mg daily. 5. Clonidine 0.1 mg every 3 times a day as needed. 6. Heparin 5000 subcutaneous every 8 hourly. 7. Labetalol 200 mg twice a day. 8. Lisinopril 20 mg daily. 9. Imodium 2 mg as needed. 10.Magnesium oxide 500 mg twice a day. 11.Metronidazole 500 mg every 8 hourly. 12.Zofran 4 mg every 6 hours as needed. 13.Protonix 40 mg daily. 14.Simethicone 80 mg every 6 hours as needed. PHYSICAL EXAMINATION: General: The patient is well oriented to time, place, and person. Follows commands spontaneously. Cardiovascular System: S1, S2 heard with normal intensity. No gallops. Respiratory: Clear to auscultation bilaterally. No wheeze. No crepitations. Abdomen: Soft. Bowel sounds positive. Nontender. No rigidity. Extremities: No edema in bilateral lower extremities. ASSESSMENT: 1. Generalized weakness from prolonged hospitalization. 2. Hypertension. 3. Hyperlipidemia. 4. Urinary tract infection. 5. History of Clostridium difficile colitis in the past. 6. History of breast cancer status post right-sided mastectomy. PLAN: 1. Generalized weakness. The patient continues to have feeling weakness. She was treated with IV fluids. The patient was evaluated by physical therapy and occupational therapy and has recommended for continued PT/OT while in the swing bed. The patient is being admitted to the swing bed at this time. We will continue with PT/OT as tolerated. 2. Hypertension. The patient's blood pressure seems to be in acceptable range. She is on Norvasc, continue the same. 3. DVT prophylaxis. Continue with heparin while in the swing bed for DVT prophylaxis and encouraged the patient to ambulate. 4. History of Clostridium difficile colitis. The patient was tested negative for C. diff x2 on previous admission. She is currently on metronidazole. We will complete the course for 1 week and discontinue the Flagyl at that time. 5. Code status. The patient wants to be DNR/DNI. [facility] /[id number]
[2016-07-03] MEDS: metroNIDAZOLE 250 MG Tab PO SCH (17:28)
[2016-07-03] MEDS: Heparin Sodium 5,000 Units/ML Vial SUBCUT SCH (20:30)
[2016-07-03] MEDS: Labetalol 100 MG Tab PO SCH (20:31)
[2016-07-03] MEDS: Ascorbic Acid 500 MG Tab PO SCH (20:31)
[2016-07-04] MEDS: metroNIDAZOLE 250 MG Tab PO SCH ×3 (02:06→17:19)
[2016-07-04] MEDS: Pantoprazole 40 MG Tab.CR PO SCH (05:33)
[2016-07-04] MEDS: Ascorbic Acid 500 MG Tab PO SCH ×2 (08:46→20:06)
[2016-07-04] MEDS: Aspirin 81 MG Tab.EC PO SCH (08:47)
[2016-07-04] MEDS: amLODIPine 5 MG Tab PO SCH (08:48)
[2016-07-04] MEDS: Labetalol 100 MG Tab PO SCH ×2 (08:48→20:06)
[2016-07-04] MEDS: Heparin Sodium 5,000 Units/ML Vial SUBCUT SCH ×2 (08:49→20:05)
[2016-07-04] MEDS: Lisinopril 20 MG Tab PO SCH (11:47)
[2016-07-05] MEDS: metroNIDAZOLE 250 MG Tab PO SCH ×3 (02:15→18:06)
[2016-07-05] MEDS: Pantoprazole 40 MG Tab.CR PO SCH (05:53)
[2016-07-05] MEDS: Aspirin 81 MG Tab.EC PO SCH (09:24)
[2016-07-05] MEDS: Heparin Sodium 5,000 Units/ML Vial SUBCUT SCH ×2 (09:24→21:18)
[2016-07-05] MEDS: Labetalol 100 MG Tab PO SCH ×2 (09:25→21:17)
[2016-07-05] MEDS: amLODIPine 5 MG Tab PO SCH (09:26)
[2016-07-05] MEDS: Ascorbic Acid 500 MG Tab PO SCH ×2 (09:26→21:17)
[2016-07-05] MEDS: Lisinopril 20 MG Tab PO SCH (11:31)
[2016-07-06] MEDS: metroNIDAZOLE 250 MG Tab PO SCH ×2 (02:14→09:29)
[2016-07-06] MEDS: Pantoprazole 40 MG Tab.CR PO SCH (06:05)
[2016-07-06] MEDS: Aspirin 81 MG Tab.EC PO SCH (08:51)
[2016-07-06] MEDS: Heparin Sodium 5,000 Units/ML Vial SUBCUT SCH (08:51)
[2016-07-06] MEDS: Ascorbic Acid 500 MG Tab PO SCH (08:53)
[2016-07-06] MEDS: amLODIPine 5 MG Tab PO SCH (08:55)
[2016-07-06] MEDS: Labetalol 100 MG Tab PO SCH (08:55)
--- NOTE | 2016-07-06 11:37 | PCM.DCSUM1 ---
Discharge Summary - Hospital Course Free Text/Narrative:: Mrs. Adhikari is an 89-year-old lady who initially was admitted to acute care setting with urinary tract infection dehydration. She has a history of C. difficile colitis, hypertension, dyslipidemia. The patient improved but was still weak and was transferred to swing bed. During her swing bed stay she has been working with physical therapy and occupational therapy She is nicely improved. Both therapy and the patient feels that she is ready for discharge. Her daughter will be staying with her for a while. - Discharge Data Discharge Date: 07/06/16 Discharge Disposition: Home, Self-Care 01 Condition: Good - Patient Summary/Data Consults: Consultations 07/03/16 10:48 OT Evaluation and Treatment [CONS] Routine PT Evaluation and Treatment [CONS] Routine - Patient Instructions Diet: Heart Healthy Diet Activity: As Tolerated - Discharge Plan Prescriptions/Med Rec: amLODIPine [Norvasc] 5 mg PO DAILY #30 tablet Home Medications: Home Meds Ascorbic Acid [Vitamin C] 500 mg PO BID 10/08/13 [History] Aspirin [Ecotrin] 81 mg PO DAILY 10/08/13 [History] Labetalol [Normodyne] 200 mg PO BID 10/08/13 [History] Lisinopril 20 mg PO DAILY 10/08/13 [History] Vitamin E 400 units PO DAILY 12/06/13 [History] Cholecalciferol (Vitamin D3) [Vitamin D3] 1,000 units PO DAILY 06/27/16 [History ] B&C/FA/Zinc/Copper Oxide/Vit E [Stress B-Complex Tablet] 1 tab PO DAILY [History] Cholecalciferol (Vitamin D3) [Vitamin D3] 1,000 unit PO DAILY 07/03/16 [History] Cranberry Extract [Cranberry] 1,000 mg PO DAILY 07/03/16 [History] Garlic [Odor Free Garlic] 200 mg PO DAILY 07/03/16 [History] Magnesium Oxide 500 mg PO BIDMEALS tablet 07/03/16 [Rx] Ubidecarenone [Coenzyme Q10] 100 mg PO DAILY 07/03/16 [History] amLODIPine [Norvasc] 5 mg PO DAILY #30 tablet 07/06/16 [Rx] Referrals: Shawn Baires MD [Primary Care Provider] - (in 3-4 days) - Discharge Summary/Plan Comment DC Time >30 min.: No - General Info Functional Status: Reports: pain controlled - Review of Systems General: Denies: Fever Pulmonary: Denies: shortness of breath Cardiovascular: Denies: Chest Pain Gastrointestinal: Denies: Abdominal pain - Patient Data Vitals - Most Recent: Last Vital Signs Temp 36.3 C 07/06/16 08:00 Pulse 70 07/06/16 08:55 Resp 18 07/06/16 08:00 BP 146/55 H 07/06/16 08:55 Pulse Ox 99 07/06/16 08:00 Weight - Most Recent: 65.091 kg I&O - Last 24 hours: Intake & Output 07/05/16 07/06/16 07/06/16 22:59 06:59 14:59 Intake Total 510 Output Total 1100 800 Balance -590 -800 Med Orders - Current: Current Medications Acetaminophen (Tylenol) 650 mg PO Q4H PRN PRN Reason: Pain (Mild 1-3)/fever Amlodipine Besylate (Norvasc) 5 mg PO DAILY [facility] Last Admin: 07/06/16 08:55 Dose: 5 mg Ascorbic Acid (Vitamin C) 500 mg PO BID [facility] Last Admin: 07/06/16 08:53 Dose: 500 mg Aspirin (Halfprin) 81 mg PO DAILY [facility] Last Admin: 07/06/16 08:51 Dose: 81 mg Clonidine HCl (Catapres) 0.1 mg PO TID PRN PRN Reason: Hypertension Heparin Sodium (Porcine) (Heparin Sodium) 5,000 units SUBCUT BID [facility] Last Admin: 07/06/16 08:51 Dose: 5,000 units Labetalol HCl (Normodyne) 200 mg PO BID [facility] Last Admin: 07/06/16 08:55 Dose: 200 mg Lisinopril (Prinivil) 20 mg PO DAILY@1200 [facility] Last Admin: 07/05/16 11:31 Dose: 20 mg Loperamide HCl (Imodium) 2 mg PO Q4H PRN PRN Reason: Diarrhea Magnesium Oxide (Magnesium Oxide) 500 mg PO BIDMEALS [facility] Last Admin: 07/06/16 08:51 Dose: 500 mg Metronidazole (Metronidazole) 500 mg PO Q8H [facility] Last Admin: 07/06/16 09:29 Dose: 500 mg Ondansetron HCl (Zofran Odt) 4 mg PO Q6H PRN PRN Reason: nausea, able to take PO Pantoprazole Sodium (Protonix) 40 mg PO ACBREAKFAST BUZZ Last Admin: 07/06/16 06:05 Dose: 40 mg Promethazine HCl (Phenergan) 6.25 mg IM Q6H PRN PRN Reason: Nausea/Vomiting Simethicone (Simethicone) 80 mg PO Q6H PRN PRN Reason: Abdominal Pain Sodium Chloride (Saline Flush) 10 ml FLUSH ASDIRECTED PRN PRN Reason: Keep Vein Open - Exam General: Reports: alert, oriented Neck: Reports: supple Lungs: Reports: Clear to auscultation, Normal respiratory effort Cardiovascular: Reports: Regular Rate, Regular Rhythm Skin: Reports: warm, dry Psy/Mental Status: Reports: alert, normal affect, normal mood *Q Meaningful Use (DIS) - VTE *Q VTE Criteria *Q: - Stroke *Q Stroke Criteria *Q: - AMI *Q AMI Criteria *Q:
[2016-07-06] MEDS: Lisinopril 20 MG Tab PO SCH (13:19)
[2016-07-06 13:21] VITALS: BP 140/50
== END 2016-07-06 14:30 | disposition home or self-care (01) | DRG 948 ==
LOC: DL.MS 10:48
PROVIDERS: ADMIT Internal Medicine; ATTEND Internal Medicine
DX: R53.1 Weakness (principal); N39.0 Urinary tract infection, site not specified; E87.1 Hypo-osmolality and hyponatremia; I10 Essential (primary) hypertension; E86.0 Dehydration; E78.5 Hyperlipidemia, unspecified; E83.42 Hypomagnesemia; D63.8 Anemia in other chronic diseases classified elsewhere; Z79.82 Long term (current) use of aspirin; Z87.891 Personal history of nicotine dependence; Z85.3 Personal history of malignant neoplasm of breast; Z79.899 Other long term (current) drug therapy; Z88.8 Allergy status to other drugs, medicaments and biological substances; Z66 Do not resuscitate
CPT/HCPCS: 36415; 80048; 83735; 97110-GO; 97116-GP; 97161-GP; 97165-GO; 97530-GO; 97535-GO; A9270-GY; J1644